=== PATIENT | female | born 2005 | race Caucasian/White ===

== ENCOUNTER 2024-08-09 13:38 | Emergency (ER) | payer BC, SELFPAY ==
[2024-08-09 13:44] VITALS: BP 151/86; PULSE 100; TEMP 37.6; O2SAT 98; BMI 35.2
--- OUTSIDE RECORDS SUMMARY | 2024-08-09 13:53 | XMS_ITS | Encounter Summary ---
Author Organization [facility] tem Address [id number] [address] [place] [address] Care Team Providers Care Cadastral Surveyor Name Role Phone Kelly Montoya DO Primary Care Pro vider Encounter Details Date Type Department Care Team (Late st Contact Info) Description 10/11/2022 Telephone [facility] [address] [facility] [address] [place] [phone] Zelda Ruhsing CNA Social History Tobacco Use Types Packs/Day Years Used Date Smoking Tobacco: Never Smokeless Tobacco: Never Alcohol Use Standard Drinks/Week Comments Never 0 (1 standard drink = 0.6 oz pur e alcohol) AUDIT-C Answer Date Recorded Q1: How often do you have a drink containing alc ohol? Never 09/05/2019 Average Number of Drinks Not on file 020 Frequency of Binge Drinking Not on file 09/2019 PHQ-2 Answer Date Recorded Total Score 2 11/09/2021 Childcare Answer Date Recorded Childcare Unknown 11/07/2018 Employment Answer Date Recorded Employment Unknown 11/07/2018 Purpose - Life Answer Date Recorded Purpose and direction in life Unknown Comments No Sex and Gender Information Value Date Recorded Sex Assigned at Not on file Legal Sex Female 8:10 AM EDT Gender Identity Not on file Sexual Orientation Not on file documented as of this encounter Miscellaneous Notes * Telephone Encounter - Zelda Rushing CNA - 10/11/2022 1:36 PM EDT Patient in recall for office visit with Mariluz Thompson message for patient to call and schedule.Recall letter mailed. documented in this encounter Plan of Treatment Not on file documented as of this encounter Visit Diagnoses Not on filedocumented in this encounter Additional Health Concerns Assessment Noted Time PHQ-9 Depression Total Score: 2 11/10/19 22 8:29 AM EDT A Body Mass Index follow-up plan has been documented for the patient 11/09/2021 9:45 AM EDT documented as of this encounter Care Teams Cadastral Surveyor Relationship Specialty Start Date End Date Kelly Montoya DO [address] [place] [address] PCP - General Pediatrics 04/16/24 documented as of this encounter
--- OUTSIDE RECORDS SUMMARY | 2024-08-09 13:53 | XMS_ITS | Patient Health Record ---
Author Organization Counts Include [facility] vices Address [address] [place], [place] [id number] Care Team Providers Care Ornamental Ironworker Name Role Phone Monica Crocker Unavailable [phone] Kelly Houston Unavailable [phone] Allergies No Known Allergies Reason For Referral Reason Please replace fixed retainers or discuss option of removable retainer Diagnosis 1 Encounter for dental examination and cleaning without abnormal findings (Z01.20) Referral Organization [facility] Referring Provider First Name Kelly Referring Provider Last Name Celso Referring Provider Speciality Dental Gen [facility] Practice Referred Provider [facility] Thong Referred Provider Specialty Orthodontics General Notes Maria Fernanda Briceño 08/29 04:18:44 PM >1st attempt to contact patientEVANGELINA Morin, Michelle 09/22/2023 04:19:39 PM >1st attempt to contact patient, Keyanna HUTCHINSON Michelle 02/27/2024 01:47:19 PM >2nd attempt to contact pt, LVM Referral Priority Routine Medications Medication SIG (Take, Route, Frequency, Duration) Notes Start Date End Date Status Pantoprazole Sodium 40 MG Oral for 30 Days Active DULoxetine HCl 20 MG Oral for 30 Days Active Social History Tobacco Use: Social History Observation Description Date Details (start date - stop date) Never Smoker NA - NA Sex Assigned At : Social History Observation Description Sex Assigned At Female Tobacco Control (Standard) Question Answer Notes Tobacco use: Nonsmoker Additional Findings: Tobacco non-user Current no nsmoker Problems Problem Type SNOMED Code ICD Code Onset Dates Problem Status W/U Status Risk Notes Problem Obese class II (835577396758 105) BMI 39.0-39.9,a dult (Z68.39) Active confirmed Vital Signs Heart Rate 62 /min 09/12/2023 Height-cm 152.4 cm 09/12/2023 Blood pressure diastolic 62 mm Hg 09/12/2023 Weight-kg 90.72 kg 09/12/2023 BMI Percentile 98.14 % 08/29/2023 Height 60 in 09/12/2023 Blood pressure systolic 103 mm Hg 09/12/2023 Weight 200 lbs 09/12/2023 BMI 39.06 kg/m2 09/12/2023 Encounters Encounter Location Date Provider Diagnosis [facility] [address] [place], [place] [id number] 08/29/2023 Kelly Houston BMI 39.0-39.9,adul t Z68.39 ; Dietary counseling Z71.3 ; Exercise counseling Z71.82 ; Encounter for screening for dental disorders Z13.84 ; Encounter for dental examination and cleaning with abnormal findings Z01.21 and Dental caries into dentine K02.62 [facility] [address] [place], [place] [phone] 09/12/2023 Kelly Houston BMI 39.0-39.9,adul t Z68.39 ; Dietary counseling Z71.3 ; Exercise counseling Z71.82 and Dental caries into dentine K02.62 Assessments Encounter Date Diagnosis (ICD Code) Assessment Notes Treatment Notes Treatment Clinical Notes Section Notes 08/29/2023 BMI 39.0-39.9,adult (ICD-10 - Z68.39) 09/12/2023 BMI 39.0-39.9,adult (ICD-10 - Z68.39) 09/12/2023 Dietary counseling (ICD-10 - Z71.3) 08/29/2023 Dietary counseling (ICD-10 - Z71.3) 09/12/2023 Exercise counseling (ICD-10 - Z71.82) 08/29/2023 Exercise counseling (ICD-10 - Z71.82) 08/29/2023 Encounter for screening for dental disorders (ICD-10 - Z13.84) 09/12/2023 Dental caries into dentine (ICD-10 - K02.62) 08/29/2023 Encounter for dental examination and cleaning with abnormal findings (ICD-10 - Z01.21) 08/29/2023 Dental caries into dentine (ICD-10 - K02.62) Plan Of Treatment No Information Insurance Providers Payer Name Payer Address Payer Phone Subscriber Number Group Number Insured Name Patient Relationship to Insured Coverage Start Date Coverage End Date [facility] [address] [place] [phone] [id number] [place] Child - Insured does not have Financial Responsibility (includes legally adopted child) 4 Medical (General) History Medical History History ICD Code acid reflux depression
--- OUTSIDE RECORDS SUMMARY | 2024-08-09 13:53 | XMS_ITS | Clinical Summary ---
Author Organization [employer] tem Address [id number] [address] [place] [address] Care Team Providers Care Buzzle Buffer Name Role Phone Kelly Montoya DO Primary Care Pro vider Allergies No known active allergies Medications pantoprazole (PROTONIX) 40 mg EC tabletIndications: Gastroesophageal reflux disease, unspecified whether esophagitis present TAKE 1 TABLET EVERY MORNING BEFORE BREAKFAST 90 tablet 3 4 Active ondansetron ODT (ZOFRAN ODT) 4 mg disintegrating tabletIndications: Gastroparesis Dissolve 1 tablet (4 mg total) on tongue every 8 (eight) hours as needed for nausea or vomiting. 30 tablet 1 4 Active DULoxetine (CYMBALTA) 20 mg capsuleIndications :Major depressive disorder, recurrent, mild TAKE 2 CAPSULES (40 MG TOTAL) BY MOUTH IN THE MORNING. ICD 10 IS F33.0. 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 Undiagnosed cardiac murmurs 2003 Encounters Date Type Department Care Team Description 05/24/2024 [facility] [address] [facility] [address] [place] [address] Kelly Bowen DO 05/22/2024 1:30 PM EDT - 05/22/2024 11:59 PM EDT Hospital Encounter [facility] [address] [place] [address] Gastroparesis; Other fatigue; Screening examination for STI; Exposure to hepatitis C Discharge Disposition: Home 05/22/2024 Travel from Last 3 Months Immunizations Immunization Administration Dates Next Due DTaP 10/11/2008, 5,03/03/2004,2003,2003 H1N1 Nasal 12/31/2008 Hep A, 2 Dose 07/16/2006,12/11/2005 Hepatitis B 08/17/2004, 4,2003,2003 HiB 08/17/2004, 5,2003,2003 IPV 10/11/2008, 5,2003,2003 Influenza, Im Trivalent Preservative 02/28/2012 Influenza, Unspecified 01/12/2013,2010,01/26/2010,2009,02/05/2009,02/11/2007,01/30/2005,0 05/07/2004,03/03/2004 MMR 10/11/2008,08/17/2004 Meningococcal B, Omv 10/03/2019,09/05/2019 Meningococcal Conjugate 09/05/2019 Meningococcal MCV4P 01/31/2015 Pneumococcal Conjugate 12/11/2004,2004,2003,2003 Tdap 01/31/2015 Varicella 03/21/2009,12/11/2004 Family History Medical History Relation Name Comments ADD / ADHD Brother Autism Brother No Known Problems Father No Known Problems Mother No Known Problems Sister Anesthesia problems Neg Hx Relation Name Status Comments Brother Alive Father Alive Mother Alive Sister Alive Social History Tobacco Use Types Packs/Day Years Used Date Smoking Tobacco: Never Smokeless Tobacco: Never Tobacco Cessation:Counseling Given: Not Answered Alcohol Use Standard Drinks/Week Comments Never 0 (1 standard drink = 0.6 oz pur e alcohol) AUDIT-C Answer Date Recorded Q1: How often do you have a drink containing alc ohol? Never 09/05/2019 Average Number of Drinks Not on file 020 Frequency of Binge Drinking Not on file 09/2019 PHQ-2 Answer Date Recorded Total Score 8 06/24/2023 Childcare Answer Date Recorded Childcare Unknown 11/07/2018 Employment Answer Date Recorded Employment Unknown 11/07/2018 Hunger Screening Answer Date Recorded Within the past 12 months we worried whether our food would run out before we got money to buy more. Never True 12/27/2023 Within the past 12 months th e food we bought just didn't last and we didn't have money to get more. Never True 12/27/2023 Purpose - Life Answer Date Recorded Purpose and direction in life Unknown Comments No Sex and Gender Information Value Date Recorded Sex Assigned at Not on file Legal Sex Female 8:10 AM EDT Gender Identity Not on file Sexual Orientation Not on file Last Filed Vital Signs Vital Sign Reading Time Taken Comments Blood Pressure 110/68 04/16/2024 11:31 AM EST Pulse 63 04/16/2024 11:31 AM EST Temperature 36.7 C (98.1 F) 04/16/2024 11:31 AM EST Respiratory Rate 18 04/16/2024 11:31 AM EST Oxygen Saturation 98% 04/16/2024 11:31 AM EST Inhaled Oxygen Concentration - - Weight 80.4 kg (177 lb 4 oz) 04/16/2024 11:31 AM EST Height 152.4 cm (5') 12/27/2023 12:20 PM EDT Body Mass Index 34.62 12/27/2023 12:20 PM EDT Plan of Treatment Health Maintenance Due Date Last Done Comments Adult BMI Follow Up Plan 08/06/2021 Depression Screening 06/23/2024 06/24/2023 Pap Smear 08/06/2024 Influenza Vaccine 10/29/2024 01/12/2013, , 02/01/2011, Additional history exists DTaP,Tdap and Td Vaccines (7 - Td or Tdap) 01/31/2025 01/31/2015, 10/11/2008, 12/11/2004, Additional history exists Adult BMI Screening 04/16/2025 04/16/2024 Tobacco Screening 05/24/2025 05/24/2024 Medical Devices Not on file Procedures Procedure Name Priority Date/Time Associated Diagnosis Comments CHLAMYDIA/GONORRHOEAE BY PCR, URINE Routine 05/22/2024 1:31 PM EDT Screening examination for STI HEPATITIS C(HCV) ANTIBODY W/REFLEX TO PCR Routine 05/22/2024 1:30 PM EDT Exposure to hepatitis C Screening examination for STI SYPHILIS TOTAL(UNKNOWN SYPHILIS STATUS) Routine 05/22/2024 1:30 PM EDT Screening examination for STI HIV 1&2 AB/AG SCREEN (P24 AG) Routine 05/22/2024 1:30 PM EDT Screening examination for STI CBC WITH AUTO DIFFERENTIAL Routine 05/22/2024 1:30 PM EDT Screening examination for STI FERRITIN Routine 05/22/2024 1:30 PM EDT Gastroparesis Other fatigue IRON AND TIBC Routine 05/22/2024 1:30 PM EDT Gastroparesis Other fatigue FOLATE Routine 05/22/2024 1:30 PM EDT Gastroparesis Other fatigue VITAMIN B12 Routine 05/22/2024 1:30 PM EDT Gastroparesis Other fatigue from Last 3 Months Results * Chlamydia/Gonorrhoeae by PCR, Urine (05/22/2024 1:31 PM EDT) Chlamydia by PCR, Urine Negative Negative^N egative 05/23/2024 12:09 PM EDT [facility] Comment: Chlamydia trachomatis not detected by nucleic acid amplification. This does not exclude the possibility of infection because results are dependent on adequate specimen collection. Gonorrhoeae by PCR, Urine Negative Negative^N egative 05/23/2024 12:09 PM EDT [facility] Comment: Neisseria gonorrhoeae not detected by nucleic acid amplification. This does not exclude the possibility of infection because results are dependent on adequate specimen collection. Urine Urine / Unknown 05/22/2024 1 :31 PM EDT 05/22/2024 1:32 PM EDT us Kelly Montoya DO MICROBIOLOGY - GE NERAL ORDERABLES Final Result [facility] [address] [place] [address], [address] [place] [address] * HIV 1&2 AB/AG Screen (P24 AG) (05/22/2024 1:30 PM EDT) Pathologist [facility] HIV 1&2 AB/AG Non-React t[place] Non-React t[place]^Non-R eactive 05/22/2024 9:18 PM EDT [facility] Comment: NEW TEST METHOD NOTE This information has been disclosed to you from confidential records protected from disclosure by state law. You shall make no further disclosure of this information without the specific, written and informed release of the individual to whom it pertains, or as otherwise permitted by state law. A general authorization for the release of medical or other information is not sufficient for the purpose of the release of HIV test results or diagnoses. Serum / Unknown 05/22/2024 1 :30 PM EDT 05/22/2024 1:31 PM EDT us Kelly Montoya DO LAB BLOOD ORDERAB LES Final Result [facility] [address] [place] [address], [address] [place] [address] * Syphilis Total(Unknown Syphilis Status) (05/22/2024 1:30 PM EDT) Syphilis Total <0.2 0.0 - 0.8 AI 05/22/2024 10:52 PM EDT [facility] Comment: NON REACTIVE No serologic evidence of infection to Treponema pallidum (syphilis). Repeat testing may be considered in patients with suspected acute or primary syphilis in 2 to 4 weeks. Serum / Unknown 05/22/2024 1 :30 PM EDT 05/22/2024 1:31 PM EDT us Kelly Montoya DO LAB BLOOD ORDERAB LES Final Result [facility] [address] [facility], [address] [place] [address] * CBC auto differential (05/22/2024 1:30 PM EDT) White Blood Cells 5.1 4.0 - 11.0 X10E9/L 05/22/2024 6:10 PM EDT [facility] RBC count 4.92 3.80 - 5.20 X10E12/L 05/22/2024 6:10 PM EDT [facility] Hemoglobin 13.8 11.7 - 15.5 g/dL 05/22/2024 6:10 PM EDT [facility] Hematocrit 41.3 35 - 47 % 05/22/2024 6:10 PM EDT [facility] MCV 84 80 - 100 fL 05/22/2024 6:10 PM EDT [facility] MCH 28.0 27 - 34 pg 05/22/2024 6:10 PM EDT [facility] MCHC 33.3 32 - 36 g/dL 05/22/2024 6:10 PM EDT [facility] RDW 14.0 11.5 - 15.0 % 05/22/2024 6:10 PM EDT [facility] Platelets 264 150 - 450 X10E9/L 05/22/2024 6:10 PM EDT [facility] MPV 8.6 7 - 12 fL 05/22/2024 6:10 PM EDT [facility] % neutrophils 56.1 % 05/22/2024 6:10 PM EDT [facility] % lymphocytes 35.3 % 05/22/2024 6:10 PM EDT [facility] % monocytes 7.5 % 05/22/2024 6:10 PM EDT [facility] % eosinophils 0.5 % 05/22/2024 6:10 PM EDT [facility] % Basophils 0.6 % 05/22/2024 6:10 PM EDT [facility] Neutrophils Absolute (A) 2.9 1.5 - 6.6 X10E9/L 05/22/2024 6:10 PM EDT [facility] Lymphocytes Absolute 1.8 1.0 - 3.5 X10E9/L 05/22/2024 6:10 PM EDT [facility] Monocytes Absolute 0.4 0 - 0.9 X10E9/L 05/22/2024 6:10 PM EDT [facility] Eosinophils Absolute 0.0 0.0 - 0.4 X10E9/L 05/22/2024 6:10 PM EDT [facility] Basophils Absolute 0.0 0.0 - 0.2 X10E9/L 05/22/2024 6:10 PM EDT [facility] Blood / Unknown 05/22/2024 1 :30 PM EDT 05/22/2024 1:31 PM EDT us Kelly Montoya DO LAB BLOOD ORDERAB LES Final Result [facility] [address] [facility] [facility] [place] [address] * Hepatitis C(HCV) Ab w/ Reflex to PCR (05/22/2024 1:30 PM EDT) Anti HCV w/ PCR reflex Non-Reacti ve Non-Reacti ve^Non-[place] ctive 05/22/2024 9:28 PM EDT [facility] Comment: NEW TEST METHOD NOTE If recent infection suspected, recommend repeat testing (>2 months). Hreddp-vi-najezl ratio is <1.00. Serum / Unknown 05/22/2024 1 :30 PM EDT 05/22/2024 1:31 PM EDT us Kelly C LocateBaltimoredBlueLithiumki-Morrow DO LAB BLOOD ORDERAB LES Final Result Performing Organization Address [facility] Co de Phone Number [facility] [address] [place] [address], [address] [address] * (ABNORMAL) Iron and TIBC (05/22/2024 1:30 PM EDT) Iron 161 50 - 170 ug/dL 05/22/2024 6:14 PM EDT [facility] Tibc-calc only do not order 427(H) 250 - 425 ug/dL 05/22/2024 6:14 PM EDT [facility] Iron Saturation 38 15 - 50 % SATURATION 05/22/2024 6:14 PM EDT [facility] PLASMA 05/22/2024 1:30 PM EDT 05/22/2024 1:31 PM EDT us Kelly C MyMusic DO LAB BLOOD ORDERAB LES Final Result Performing Organization Address [facility] Co de Phone Number [address], [address] [address] * Folate (05/22/2024 1:30 PM EDT) Folate 9.3 >5.8 ng/mL 05/22/2024 6:30 PM EDT [facility] Comment:NEW REFERENCE RANGE PLASMA 05/22/2024 1:30 PM EDT 05/22/2024 1:31 PM EDT us Kelly C LocateBaltimoredBlueLithiumki-Morrow DO LAB BLOOD ORDERAB LES Final Result [facility] [address] [facility], [address] [place] [address] * (ABNORMAL) Ferritin (05/22/2024 1:30 PM EDT) Ferritin 10(L) 11 - 307 ng/mL 05/22/2024 6:27 PM EDT [facility] PLASMA 05/22/2024 1:30 PM EDT 05/22/2024 1:31 PM EDT us Kelly C Chudzinski-Morrow DO LAB BLOOD ORDERAB LES Final Result [facility] [address] [facility] [address] [place] [address] * Vitamin B12 (05/22/2024 1:30 PM EDT) Vitamin B-12 294 180 - 914 pg/mL 05/22/2024 6:31 PM EDT [facility] Serum / Unknown 05/22/2024 1 :30 PM EDT 05/22/2024 1:31 PM EDT us Kelly C Chudzinski-Morrow DO LAB BLOOD ORDERAB LES Final Result Performing Organization Address City/[facility]/ZIP Co de Phone Number [facility] [address] [facility] [address] [place] [address] from Last 3 Months Insurance [facility] Care Teams Buzzle Buffer Relationship Specialty Start Date End Date Kelly Montoya DO [address] [phone] PCP - General Pediatrics 04/16/24
--- OUTSIDE RECORDS SUMMARY | 2024-08-09 13:53 | XMS_ITS | Encounter Summary ---
Author Organization [facility] Address [id number] [address] [place] [address] Care Team Providers Care Director Of Distribution Name Role Phone Kelly Montoya DO Primary Care Pro vider Encounter Details Date Type Department Care Team (Late st Contact Info) Description 05/24/2024 Telephone [facility] [address] [phone] Kelly Montoya DO [address] [phone] Social History Tobacco Use Types Packs/Day Years [...] encounter Miscellaneous Notes * Telephone Encounter - Kelly Montoya DO - 05/24/2024 5:10 PM EDT Please update patient that her labs were overall reassuring. CBC normal. Ferritin is stably low, however, iron, folate and vitamin B12 all look good. HIV, syphilis, hep C all nonreactive. Screening for gonorrhea and chlamydia negative. * Telephone Encounter - MELI Cross - 05/24/2024 5:10 PM EDT LMOM with detailed message.MELI Cross documented in this encounter Plan of Treatment Not on file documented as of this encounter Visit Diagnoses Not on filedocumented in this encounter Additional Health Concerns Assessment Noted Time PHQ-9 Depression Total Score: 8 06/24/19 24 9:47 AM EDT A Body Mass Index follow-up plan has been documented for the patient 11/09/2021 9:45 AM EDT documented as of this encounter Care Teams Director Of Distribution Relationship Specialty Start Date End Date Kelly Montoya DO [address] [place] [address] PCP - General Pediatrics 04/16/24 documented as of this encounter
--- OUTSIDE RECORDS SUMMARY | 2024-08-09 13:53 | XMS_ITS | Encounter Summary ---
Author Organization [employer] [facility] tem Address [id number] [address] [place] [address] Care Team Providers Care Open Hearth Worker Name Role Phone Kelly Montoya DO Primary Care Pro vider Encounter Details Date Type Department Care Team (Late st Contact Info) Description 12/14/2023 Telephone [facility] [address] [phone] Josiah Palm Social History Tobacco Use Types Packs/Day Years [...] got money to buy more. Never True 09/27/2023 Within the past 12 months th e food we bought just didn't last and we didn't have money to get more. Never True 09/27/2023 Purpose - Life Answer Date Recorded Purpose and direction in life Unknown Comments No Sex and Gender Information Value Date Recorded Sex Assigned at Not on file Legal Sex Female 8:10 AM EDT Gender Identity Not on file Sexual Orientation Not on file documented as of this encounter Miscellaneous Notes * Telephone Encounter - Josiah Palm - 12/14/2023 9:29 AM EDT Armando from [facility] said that imaging told her that they need a new order for NM gastric emptying, instead of liquid, they need it to say solid. I have the order pending. Patient is scheduled 12/18 for the test. * Telephone Encounter - Kelly Montoya DO - 12/14/2023 9:29 AM EDT Unfortunately, I can not sign off on the order due to it requesting the Record Decision Support Information within the order protocol and this cannot be bypassed. Please reach out to patient to letthem know that this request will need to be completed by her GI at the [facility] in order to be scheduled. Please contact their office to request the order and provide instructions of where they can fax itto an order for it to be completed/scheduled. * Telephone Encounter - Maru Landry CMA - 12/14/2023 9:29 AM EDT Called and spoke to mother. She will call and get the testing ordered by [facility] and have them fax to [facility]. documented in this encounter Plan of Treatment Not on file documented as of this encounter Visit Diagnoses Diagnosis Gastroparesis- Primary documented in this encounter Additional Health Concerns Assessment Noted Time PHQ-9 Depression Total Score: 8 06/23/ 24 9:47 AM EDT A Body Mass Index follow-up plan has been documented for the patient 11/09/2021 9:45 AM EDT documented as of this encounter Care Teams Open Hearth Worker Relationship Specialty Start Date End Date Kelly Montoya DO [address] [place] [address] PCP - General Pediatrics 04/16/24 documented as of this encounter
--- OUTSIDE RECORDS SUMMARY | 2024-08-09 13:53 | XMS_ITS | Encounter Summary ---
Author Organization [employer] Sys tem Address [facility] [id number] [address] [place] [address] Care Team Providers Care Pension Manager Name Role Phone Kelly Montoya DO Primary Care Pro vider Reason for Visit * Reason Comments Med Refill Encounter Details Date Type Department Care Team (Late st Contact Info) Description 06/16/2022 Refill [facility] [address] [place] [address] Kelly Montoya DO [address] [place] [address] Gastroesophageal reflux disease, unspecified whether esophagitis present Social History Tobacco Use Types Packs/Day Years [...] on file documented as of this encounter Plan of Treatment Not on file documented as of this encounter Visit Diagnoses Diagnosis Gastroesophageal reflux disease, unspecified whether esophagitis present documented in this encounter Additional Health Concerns Assessment Noted Time PHQ-9 Depression Total Score: 2 11/10/19 8:29 AM EDT A Body Mass Index follow-up plan has been documented for the patient 11/09/2021 9:45 AM EDT documented as of this encounter Care Teams Pension Manager Relationship Specialty Start Date End Date Kelly Montoya DO [address] [place] [address] PCP - General Pediatrics 04/16/24 documented as of this encounter
--- OUTSIDE RECORDS SUMMARY | 2024-08-09 13:53 | XMS_ITS | Encounter Summary ---
Author Organization [facility] Sys tem Address [facility] [place]-[id number] [address] [place] [address] Care Team Providers Care Adhesive Bonding Machine Operator Name Role Phone Kelly Montoya DO Primary Care Pro vider Encounter Details Date Type Department Care Team (Late st Contact Info) Description 10/11/2022 Orders Only [facility] [address] [place] [address] Mariluz Chapin, ARTIST CONSULTANT-[facility] [address] [facility] [address] [place] [address] Altered bowel habits Social History Tobacco Use Types Packs/Day Years [...] as of this encounter Visit Diagnoses Diagnosis Altered bowel habits documented in this encounter Additional Health Concerns Assessment Noted Time PHQ-9 Depression Total Score: 2 11/10/19 22 8:29 AM EDT A Body Mass Index follow-up plan has been documented for the patient 11/09/2021 9:45 AM EDT documented as of this encounter Care Teams Adhesive Bonding Machine Operator Relationship Specialty Start Date End Date Kelly Montoya DO [address] [place] [address] PCP - General Pediatrics 04/16/24 documented as of this encounter
--- OUTSIDE RECORDS SUMMARY | 2024-08-09 13:53 | XMS_ITS | Encounter Summary ---
Author Organization [employer] Sys tem Address [facility] [place][id number] [address] [place] [address] Care Team Providers Care Wash Tub Machine Operator Name Role Phone Kelly Montoya DO Primary Care Pro vider Encounter Details Date Type Department Care Team (Late st Contact Info) Description 08/11/2022 [facility] [address] [facility] [address] [place] [phone] Nikole Gray CMA Social History Tobacco Use Types Packs/Day Years [...] encounter Miscellaneous Notes * Telephone Encounter - Nikole Gray CMA - 08/11/2022 9:20 AM EDT Spoke to patient mother. She states they already see an Endo Physician. documented in this encounter Plan of Treatment Not on file documented as of this encounter Visit Diagnoses Not on filedocumented in this encounter Additional Health Concerns Assessment Noted Time PHQ-9 Depression Total Score: 2 11/10/19 22 8:29 AM EDT A Body Mass Index follow-up plan has been documented for the patient 11/09/2021 9:45 AM EDT documented as of this encounter Care Teams Wash Tub Machine Operator Relationship Specialty Start Date End Date Kelly Montoya DO [address] [place] [address] PCP - General Pediatrics 04/16/24 documented as of this encounter
--- OUTSIDE RECORDS SUMMARY | 2024-08-09 13:53 | XMS_ITS | Encounter Summary ---
Author Organization [facility] [employer] [facility] Address [facility] [place][id number] [address] [place] [address] Care Team Providers Care Restaurant Kitchen And Service Manager Name Role Phone Kelly Montoya DO Primary Care Pro vider Reason for Visit * Reason Comments Med Refill Encounter Details Date Type Department Care Team (Late st Contact Info) Description 06/08/2022 Refill [facility] [address] [place] [address] Kelly Montoya DO [address] [place] [address] Mild episode of recurrent major depressive disorder ([facility]) Social History Tobacco Use Types Packs/Day Years [...] as of this encounter Visit Diagnoses Diagnosis Mild episode of recurrent major depressive disorder documented in this encounter Additional Health Concerns Assessment Noted Time PHQ-9 Depression Total Score: 2 11/10/19 8:29 AM EDT A Body Mass Index follow-up plan has been documented for the patient 11/09/2021 9:45 AM EDT documented as of this encounter Care Teams Restaurant Kitchen And Service Manager Relationship Specialty Start Date End Date Kelly Montoya DO [address] [place] [address] PCP - General Pediatrics 04/16/24 documented as of this encounter
--- OUTSIDE RECORDS SUMMARY | 2024-08-09 13:53 | XMS_ITS | Encounter Summary ---
Author Organization [facility] Sys tem Address [facility] [id number] [address] [place] [address] Care Team Providers Care Level Vial Curvature Gauger Name Role Phone Kelly Montoya DO Primary Care Pro vider Encounter Details Date Type Department Care Team (Late st Contact Info) Description 06/03/2022 Telephone [facility] [address] [place] [address] [address] [place] [phone] Consultants, [facility] [address] [place] [address], [address] [place] [address] Social History Tobacco Use Types Packs/Day Years [...] encounter Miscellaneous Notes * Telephone Encounter - Nida Mccarty - 06/03/2022 12:07 PM EDT Received a referral Bony Gomez from Dr. Rupali Morrow for chronic right upper quadrant pain. M for patient to call back and schedule pressurised container filler appointment with gastroenterology. documented in this encounter Plan of Treatment Not on file documented as of this encounter Visit Diagnoses Not on filedocumented in this encounter Additional Health Concerns Assessment Noted Time PHQ-9 Depression Total Score: 2 11/10/19 22 8:29 AM EDT A Body Mass Index follow-up plan has been documented for the patient 11/09/2021 9:45 AM EDT documented as of this encounter Care Teams Level Vial Curvature Gauger Relationship Specialty Start Date End Date Kelly Montoya DO [address] [place] [address] PCP - General Pediatrics 04/16/24 documented as of this encounter
--- OUTSIDE RECORDS SUMMARY | 2024-08-09 13:53 | XMS_ITS | Encounter Summary ---
Author Organization [facility] Address [address] [place] [address] Care Team Providers Care Sales Counselor Name Role Phone Bobo Coelho Primary Care Provider [phone] Pcp, No MANAGER SUPPLY CHAIN PLANNING Primary Care Provider Unavailabl e Source Comments In the event this information is protected by the Federal Confidentiality of Alcohol and Drug AbusePatient Records regulations: The Federal rules restrict any use of the information to criminally investigate or prosecute any alcohol or drug abuse patient.[facility] Encounter Details Date Type Department Care Team (Latest Contact Info) Description 06/21/2004 Prob Sum Review Provider, Cc Social History Tobacco Use Types Packs/Day Years Used Date Smoking Tobacco: Never Assessed Comments Unknown Sex and Gender Information Value Date Recorded Sex Assigned at Not on file Legal Sex Female 10:03 AM EST Gender Identity Not on file Sexual Orientation Not on file documented as of this encounter Plan of Treatment Not on file documented as of this encounter Visit Diagnoses Not on filedocumented in this encounter Care Teams Sales Counselor Relationship Specialty Start Date End Date Bobo Coelho [address] [place] [address] PCP - General 03/23/04 09/11/21 Pcp, No, INDU PCP - General 09/12/21 03/30/22 documented as of this encounter
--- OUTSIDE RECORDS SUMMARY | 2024-08-09 13:53 | XMS_ITS | Encounter Summary ---
Author Organization [facility] Address [facility] [place]-[id number] [address] [place] [address] Care Team Providers Care Make Ready Worker Name Role Phone Kelly Montoya DO Primary Care Pro vider Reason for Visit * Reason Onset Date Comments Med Refill 11/02/2023 Encounter Details Date Type Department Care Team (Late st Contact Info) Description 11/02/2023 Refill [facility] [address] [facility] [address] [place] [address] Mariluz Chapin, [facility] [address] [facility] [address] [place] [id number] Social History Tobacco Use Types Packs/Day Years [...] encounter Miscellaneous Notes * Telephone Encounter - Rochelle Johnson CMA - 11/02/2023 9:42 AM EDT Pt last saw you 12/16/22 * Telephone Encounter - CLAIRE Lrason - 11/02/2023 9:42 AM EDT Patient overdue for follow up appointment with Dr. Cheek as recommended following last OV in 11/2022. * Telephone Encounter - Rochelle Johnson CMA - 11/02/2023 9:42 AM EDT My chart message sent to pt documented in this encounter Plan of Treatment Not on file documented as of this encounter Visit Diagnoses Not on filedocumented in this encounter Additional Health Concerns Assessment Noted Time PHQ-9 Depression Total Score: 8 06/24/19 24 9:47 AM EDT A Body Mass Index follow-up plan has been documented for the patient 11/09/2021 9:45 AM EDT documented as of this encounter Care Teams Make Ready Worker Relationship Specialty Start Date End Date Kelly Montoya DO [address] [place] [phone] PCP - General Pediatrics 04/16/24 documented as of this encounter
--- OUTSIDE RECORDS SUMMARY | 2024-08-09 13:53 | XMS_ITS | Encounter Summary ---
Author Organization [employer] [facility] Address [facility]-[id number] [address] [place] [address] Care Team Providers Care Window Glass Cutter Off Name Role Phone Kelly Montoya DO Primary Care Pro vider Reason for Visit * Reason Onset Date Comments Med Refill 07/15/2022 Encounter Details Date Type Department Care Team (Late st Contact Info) Description 07/15/2022 Refill [facility] [address] [place] [phone] Vale Michel, GUNNER Mild episode of recurrent major depressive disorder ([facility]) Social History Tobacco Use Types Packs/Day Years [...] encounter Miscellaneous Notes * Telephone Encounter - Vale Michel RN - 07/15/2022 4:30 PM EDT appt is scheduled for August 02 at 11 AM Please amend script for 30 day dose documented in this encounter Plan of Treatment [...] documented as of this encounter Care Teams Window Glass Cutter Off Relationship Specialty Start Date End Date Kelly Montoya DO [address] [place] [address] PCP - General Pediatrics 04/16/24 documented as of this encounter
--- OUTSIDE RECORDS SUMMARY | 2024-08-09 13:53 | XMS_ITS | Encounter Summary ---
Author Organization [facility] Address [facility] [place][id number] [address] [place] [address] Care Team Providers Care Cds Sales Advisor Name Role Phone Kelly Montoya DO Primary Care Pro vider Reason for Visit * Reason Comments Med Refill Encounter Details Date Type Department Care Team (Late st Contact Info) Description 02/03/2023 Refill [facility] [address] [place] [address] Kelly Montoya DO [address] [place] [address] Gastroesophageal reflux disease, unspecified whether [...] got money to buy more. Never True 12/16/2022 Within the past 12 months th e food we bought just didn't last and we didn't have money to get more. Never True 12/16/2022 Purpose - Life Answer Date Recorded Purpose [...] documented as of this encounter Care Teams Cds Sales Advisor Relationship Specialty Start Date End Date Kelly Montoya DO [address] [place] [address] PCP - General Pediatrics 04/16/24 documented as of this encounter
--- OUTSIDE RECORDS SUMMARY | 2024-08-09 13:53 | XMS_ITS | Clinical Summary ---
Author Organization [facility] Address [address] [place] [address] Care Team Providers Care Custom Frame Assembler Name Role Phone Unavailable Primary Care Provider Unavailabl e Allergies No known active allergies Medications multivitamin tablet Take 1 tablet by mouth once daily. Active Ibuprofen (MOTRIN) 100 mg tablet Take 200 mg by mouth every 6 hours as needed. Active DULoxetine (CYMBALTA) 20 mg capsule TAKE 2 CAPSULES (40 MG TOTAL) BY MOUTH IN THE MORNING. ICD 10 IS F33.0. 4 Active ondansetron orally disintegrating (ZOFRAN ODT) 4 mg disintegrating tablet Take 4 mg by mouth three times a day as needed. [address] (PROTONIX) 40 mg tablet Take 40 mg by mouth. 4 Active Erythromycin 250 mg cpDRIndications:Gas troparesis Take 1 capsule by mouth before meals and at bedtime. Take for 3 weeks then stop for a week then restart the cycle 120 capsule 5 4 Active meclizine (ANTIVERT) 25 mg tabIndications:Naus ea Take 1 tablet by mouth three times a day as needed. 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 Undiagnosed cardiac murmurs 2003 Immunizations Immunization Administration Dates Next Due hepatitis B (HepB) vaccine, 3-dose series, age 0 yr - 19 yr (ENGERIX B-PEDS, RECOMBIVAX HB-PEDS) 2003 Social History Tobacco Use Types Packs/Day Years Used Date Smoking Tobacco: Passive Smo ke Exposure - Never Smoker Alcohol Use Standard Drinks/Week Comments No 0 (1 standard drink = 0.6 oz pur e alcohol) Area Deprivation Index Answer Date Harry rded National Score (1-100), lower number is lower ri sk 60 06/21/2023 State Score (1-10), lower number is lower risk 4 06/21/2023 Data from: https://www.neighborhoodatlas.medicine.[facility]/. Last address used for calculation [address] 06/21/2023 Comments No Sex and Gender Information Value Date Recorded Sex Assigned at Not on file Legal Sex Female 10:03 AM EST Gender Identity Not on file Sexual Orientation Not on file Last Filed Vital Signs Vital Sign Reading Time Taken Comments Blood Pressure 138/76 06/21/2023 1:33 PM EDT Pulse 70 06/21/2023 1:33 PM EDT Temperature 36.7 C (98.1 F) 11/03/2014 7:58 PM EDT Respiratory Rate 22 11/03/2014 7:58 PM EDT Oxygen Saturation 98% 11/03/2014 7:58 PM EDT Inhaled Oxygen Concentration - - Weight 93.9 kg (207 lb 0.2 oz) 06/21/2023 1:33 P M EDT Height 152.4 cm (5') 06/21/2023 1:33 PM EDT Body Mass Index 40.43 06/21/2023 1:33 PM EDT Plan of Treatment Health Maintenance Due Date Last Done Comments Peds To Adult Transition Ini tial Discussion 2015 Peds To Adult Transition Orly ual Assessment 08/06/2017 HPV Vaccine (1 - 3-dose series) 08/06/2018 Anxiety Screening 08/06/2021 Chlamydia Screening (18-24) 08/06/2021 Depression Screening 08/06/2021 GC (Gonorrhea) Screening (18-24) 08/06/2021 HIV Screening 08/06/2021 Hepatitis C Screening 08/06/2021 Covid-19 Vaccine (2023-2 5 season) 2023 Cervical Cancer Screening 08/06/2024 Influenza Vaccine (Season Ended) 2024 01/12/2013, 02/28/2012, 02/01/2011, Additional history exists DTaP,Tdap,Td Vaccine (7 - Td or Tdap) 01/31/2025 01/31/2015, 10/11/2008, 12/11/2004, Additional history exists Hepatitis B Vaccine Completed 08/17/2004, 2003, 2003, Additional history exists Meningococcal B Vaccine Completed 10/03/2019, 09/04 Insurance BLUE CARD PPO OOS BLUE CARD PPO OOS
--- OUTSIDE RECORDS SUMMARY | 2024-08-09 13:53 | XMS_ITS | Encounter Summary ---
Author Organization [facility] Sys [facility] Address [facility] [id number] [address] [place] [address] Care Team Providers Care Rail Filler Name Role Phone Kelly Montoya DO Primary Care Pro vider Encounter Details Date Type Department Care Team (Late st Contact Info) Description 06/25/2023 Telephone [facility] [address] [place] [phone] Kelly Montoya DO [address] [phone] Social History Tobacco Use Types Packs/Day Years [...] got money to buy more. Never True 06/24/2023 Within the past 12 months th e food we bought just didn't last and we didn't have money to get more. Never True 06/24/2023 Purpose - Life Answer Date Recorded Purpose and direction in life Unknown Comments No Sex and Gender Information Value Date Recorded Sex Assigned at Not on file Legal Sex Female 8:10 AM EDT Gender Identity Not on file Sexual Orientation Not on file documented as of this encounter Miscellaneous Notes * Telephone Encounter - Kelly Montoya DO - 06/25/2023 8:58 AM EDT Patient's labs demonstrate iron and folate deficiency. I recommend starting a daily MVI and iron supplement. Repeat iron levels in 3 months. * Telephone Encounter - MELI Cross - 06/25/2023 8:58 AM EDT Patient informed and will start RX's then repeat labs in 3 months.MELI Cross documented in this encounter Plan of Treatment Not on file documented as of this encounter Visit Diagnoses Diagnosis Iron deficiency- Primary Disorders of iron metabolism documented in this encounter Additional Health Concerns Assessment Noted Time PHQ-9 Depression Total Score: 8 06/24/19 24 9:47 AM EDT A Body Mass Index follow-up plan has been documented for the patient 11/09/2021 9:45 AM EDT documented as of this encounter Care Teams Rail Filler Relationship Specialty Start Date End Date Kelly Montoya DO [address] [place] [address] PCP - General Pediatrics 04/16/24 documented as of this encounter
--- OUTSIDE RECORDS SUMMARY | 2024-08-09 13:53 | XMS_ITS | Encounter Summary ---
Author Organization [facility] [employer] [facility] [employer] Address [facility] [place]-[id number] [address] [place] [address] Care Team Providers Care Head Tennis Professional Name Role Phone Kelly Montoya DO Primary Care Pro vider Reason for Visit * Reason Comments Med Refill Encounter Details Date Type Department Care Team (Late st Contact Info) Description 12/27/2020 Refill [facility] [address] [place] [address] Kelly Montoya DO [address] [place] [address] Mild episode of recurrent major depressive disorder ([facility]) Social History Tobacco Use Types Packs/Day Years [...] 09/2019 PHQ-2 Answer Date Recorded Total Score 7 12/18/2020 Childcare Answer Date Recorded Childcare Unknown 11/07/2018 Employment Answer Date Recorded Employment Unknown 11/07/2018 Purpose - Life Answer Date Recorded Purpose and direction in life Unknown Comments No Sex and Gender Information Value Date Recorded Sex Assigned at Not on file Legal Sex Female 8:10 AM EDT Gender Identity Not on file Sexual Orientation Not on file COVID-19 Exposure Response Date Recorded In the last month, have you been in contact with someone who was confirmed or suspected to have Coronavirus / COVID-19? No / Unsure 12/30/2020 1:48 PM EDT documented as of this encounter Plan of Treatment Not on file documented as of this encounter Visit Diagnoses Diagnosis Mild episode of recurrent major depressive disorder documented in this encounter Additional Health Concerns Assessment Noted Time PHQ-9 Depression Total Score: 7 12/19/19 21 3:29 PM EDT A Body Mass Index follow-up plan has been documented for the patient 10/30/2020 7:34 PM EDT documented as of this encounter Care Teams Head Tennis Professional Relationship Specialty Start Date End Date Kelly Montoya DO [address] [place] [address] PCP - General Pediatrics 04/16/24 documented as of this encounter
--- OUTSIDE RECORDS SUMMARY | 2024-08-09 13:54 | XMS_ITS | Encounter Summary ---
Author Organization [facility] [employer] [facility] Address [facility] [place]-[id number] [address] [place] [address] Care Team Providers Care Store Sales Consultant Name Role Phone Kelly Montoya DO Primary Care Pro vider Reason for Visit * Reason Comments Med Refill Encounter Details Date Type Department Care Team (Late st Contact Info) Description 05/25/2021 Refill [facility] [address] [place] [address] Kelly Montoya DO [address] [place] [address] Mild episode of recurrent major depressive disorder ([facility]) Social History Tobacco Use Types [...] Time PHQ-9 Depression Total Score: 7 12/19/19 3:29 PM EDT A Body Mass Index follow-up plan has been documented for the patient 10/30/2020 7:34 PM EDT documented as of this encounter Care Teams Store Sales Consultant Relationship Specialty Start Date End Date Kelly Montoya DO [address] [place] [address] PCP - General Pediatrics 04/16/24 documented as of this encounter
--- OUTSIDE RECORDS SUMMARY | 2024-08-09 13:54 | XMS_ITS | Encounter Summary ---
Author Organization [employer] [employer] [facility] [employer] Address [facility] [place][id number] [address] [place] [address] Care Team Providers Care Small Boat Engineer Name Role Phone Kelly Montoya DO Primary Care Pro vider Reason for Visit * Reason Comments Med Refill Encounter Details Date Type Department Care Team (Late st Contact Info) Description 02/26/2021 Refill [facility] [address] [place] [address] Kelly Montoya DO [address] [place] [address] Mild episode of recurrent major depressive disorder ([facility]) Social History Tobacco Use Types [...] documented as of this encounter Care Teams Small Boat Engineer Relationship Specialty Start Date End Date Kelly Montoya DO [address] [place] [address] PCP - General Pediatrics 04/16/24 documented as of this encounter
--- OUTSIDE RECORDS SUMMARY | 2024-08-09 13:54 | XMS_ITS | Encounter Summary ---
Author Organization [facility] [employer] [facility] [employer] Address [facility] [place][id number] [address] [place] [address] Care Team Providers Care Healthcare Recruiter Name Role Phone Kelly Montoya DO Primary Care Pro vider Reason for Visit * Reason Comments Med Refill Encounter Details Date Type Department Care Team (Late st Contact Info) Description 01/16/2021 Refill [facility] [address] [place] [address] Kelly Montoya DO [address] [place] [address] Mild episode of recurrent major depressive disorder ([facility]) Social History Tobacco Use Types [...] have Coronavirus / COVID-19? No / Unsure 01/15/2021 4:41 PM EST documented as of this encounter Plan of [...] documented as of this encounter Care Teams Healthcare Recruiter Relationship Specialty Start Date End Date Kelly Montoya DO [address] [place] [address] PCP - General Pediatrics 04/16/24 documented as of this encounter
--- NOTE | 2024-08-09 14:13 | ED.GENADUL1 ---
HPI HPI - General Adult General Chief complaint: Epistaxis Stated complaint: EPISTAXIS Time Seen by Provider: 08/09/24 13:53 Source: patient Mode of arrival: walk-in History of Present Illness HPI narrative: 19-year-old female presents to the emergency department for nosebleed. She started having bleeding and blood clots coming from the right nostril about 40 minutes ago. She had a sudden onset of a headache at the same time. There is been no trauma. She is being treated for pneumonia and has been on an antibiotic for 4 days. She does not have a history of previous nosebleeds that required medical attention. Related Data Home Medications ?Medication ?Instructions ?Recorded ?Confirmed duloxetine 40 mg capsule,delayed 40 mg PO DAILY 08/09/24 08/09/24 release sprinkle pantoprazole 20 mg tablet,delayed 20 mg PO DAILY 08/09/24 08/09/24 release Allergies Allergy/AdvReac Type Severity Reaction Status Date / Time No Known Drug Allergies Allergy Verified 08/09/24 13:44 Opioid HPI Opioid Management Most Recent Opioid Data: Last Pain Scale 7 Today, 13:44 Review of Systems ROS Narrative A ten point review of systems is negative except as noted above. PFSH PFSH Social History Little interest or pleasure in doing things: not at all Feeling down, depressed, or hopeless: not at all Exam Narrative Exam Narrative: Nurses note and vital signs reviewed and patient is not hypoxic. General: The patient appears well and in no apparent distress. Patient is resting comfortably on cart. Skin: Warm, dry, no pallor noted. There is no rash noted. Head: Normocephalic, atraumatic Eye: Normal conjunctiva, no drainage Ears, Nose, Mouth, and Throat: oral mucosa is moist. Nasal clamp in place. No epistaxis from the left side. She has a clot in the right nostril which I removed and no current active bleeding. Cardiovascular: Regular Rate and Rhythm Respiratory: Patient is in no distress, no accessory muscle use, lungs are clear to auscultation, no wheezing, rales or rhonchi Back: non-tender GI: Soft and nontender Musculoskeletal: The patient has no evidence of calf tenderness, no pitting edema, symmetrical pulses noted bilaterally Neurological: A&O, normal speech Psychiatric: Cooperative Constitutional Vital Signs, click to edit/add: Last Vital Signs Temp 99.6 F 08/09/24 13:44 Pulse 100 H 08/09/24 13:44 Resp 18 08/09/24 13:44 BP 151/86 H 08/09/24 13:44 Pulse Ox 98 08/09/24 13:44 O2 Del Method Room Air 08/09/24 13:44 Course Vital Signs Vital signs: Vital Signs Temperature 99.6 F 08/09/24 13:44 Pulse Rate 100 H 08/09/24 13:44 Respiratory Rate 18 08/09/24 13:44 Blood Pressure 151/86 H 08/09/24 13:44 Pulse Oximetry 98 08/09/24 13:44 Oxygen Delivery Method Room Air 08/09/24 13:44 Temperature 99.6 F 08/09/24 13:44 Pulse Rate 100 H 08/09/24 13:44 Respiratory Rate 18 08/09/24 13:44 Blood Pressure 151/86 H 08/09/24 13:44 Pulse Oximetry 98 08/09/24 13:44 Oxygen Delivery Method Room Air 08/09/24 13:44 Medical Decision Making MDM Narrative Medical decision making narrative: CT brain is negative. Nose has been packed and she will return in 3 days for packing removal. Treatment diagnosis and follow-up were discussed with the patient and her parents. Differential Diagnosis Differential Diagnosis: Anterior epistaxis, posterior epistaxis Imaging Data CT scan - head: Radiologist's impression: No acute intracranial abnormality Discharge Plan Discharge Chief Complaint: Epistaxis Clinical Impression: Epistaxis Patient Disposition: Home, Self-Care Time of Disposition Decision: 15:18 Condition: Good Mode of Transportation: Private Vehicle Prescriptions / Home Meds: No Action duloxetine 40 mg capsule, delayed rel sprinkle 40 mg PO DAILY pantoprazole 20 mg tablet,delayed release (DR/EC) 20 mg PO DAILY Print Language: Persian Instructions: Nosebleed (ED) Additional Instructions: Return to the emergency department on August 12, for packing removal. Referrals: KYLAH ULLOA [Primary Care Provider, Pediatrics] - 1 week Procedures ED Procedure Instructions Procedures Procedures: The patient has had right sided epistaxis. The following procedure was performed by me. 5.5 cm anterior nasal packing was placed and inflated. She tolerated the procedure well and there is no subsequent bleeding.
[2024-08-09] MEDS: ONDANSETRON 4 MG RAPDIS TABLET SL (14:33)
== END 2024-08-09 15:45 | disposition home or self-care (01) ==
PROVIDERS: Emergency Provider Emergency Medicine; PCP Pediatrics
DX: R04.0 Epistaxis (principal)
CPT/HCPCS: 30901; 70450; 99284; Q0162

== ENCOUNTER 2024-08-12 15:15 | Emergency (ER) | payer BC, SELFPAY ==
[2024-08-12 15:18] VITALS: BP 160/95; PULSE 100; TEMP 37; O2SAT 100; BMI 34.2
--- NOTE | 2024-08-12 15:27 | ED.EPISTAXI1 ---
HPI - Epistaxis General Chief Complaint: Epistaxis Stated Complaint: plug from nose removed Time Seen by Provider: 08/12/24 15:19 Source: patient Mode of arrival: walk-in Limitations: no limitations History of Present Illness HPI Narrative: The patient is coming to the ER to have the Rhino Rocket removed after she had an episode of epistaxis almost 3 days ago The Rhino Rocket was placed in our emergency room and the patient had no bleeding since this happened no acute complaint at the moment Related Data Home Medications ?Medication ?Instructions ?Recorded ?Confirmed duloxetine 40 mg capsule,delayed 40 mg PO DAILY 08/09/24 08/09/24 release sprinkle pantoprazole 20 mg tablet,delayed 20 mg PO DAILY 08/09/24 08/09/24 release Allergies Allergy/AdvReac Type Severity Reaction Status Date / Time No Known Drug Allergies Allergy Verified 08/09/24 13:44 Review of Systems ROS Status of ROS 10 or more systems reviewed and unremarkable except as noted in history and below PFSH PFSH Social History Little interest or pleasure in doing things: not at all Feeling down, depressed, or hopeless: not at all Exam Narrative Exam Narrative: Nurses notes and vital signs reviewed and patient is not hypoxic. General: Well-appearing and in no apparent distress. Skin: Warm, dry, no pallor noted. No rash. Head: Normocephalic, atraumatic. Neck: Supple, non-tender. Eye: Pupils are equal, round and EOMI. No scleral icterus. Ears, Nose, Mouth, and Throat: The patient have the Rhino Rocket in the right nostril before removing it there was no bleeding and after removing it there was no active bleeding or blood clot that was observed in the nostril and the patient does not have any posterior pharyngeal bleeding Constitutional Vital Signs, click to edit/add: Last Vital Signs Temp 98.6 F 08/12/24 15:18 Pulse 100 H 08/12/24 15:18 Resp 18 08/12/24 15:18 BP 160/95 H 08/12/24 15:18 Pulse Ox 100 08/12/24 15:18 O2 Del Method Room Air 08/12/24 15:18 Course Vital Signs Vital signs: Vital Signs Temperature 98.6 F 08/12/24 15:18 Pulse Rate 100 H 08/12/24 15:18 Respiratory Rate 18 08/12/24 15:18 Blood Pressure 160/95 H 08/12/24 15:18 Pulse Oximetry 100 08/12/24 15:18 Oxygen Delivery Method Room Air 08/12/24 15:18 Temperature 98.6 F 08/12/24 15:18 Pulse Rate 100 H 08/12/24 15:18 Respiratory Rate 18 08/12/24 15:18 Blood Pressure 160/95 H 08/12/24 15:18 Pulse Oximetry 100 08/12/24 15:18 Oxygen Delivery Method Room Air 08/12/24 15:18 MDM - Epistaxis MDM Narrative Medical decision making narrative: The patient Rhino Rocket was removed smoothly and the patient will be observed for 15 minutes if there is no more bleeding the patient to follow-up with her primary care as outpatient The mother at the bedside instructed as well as the patient that the patient need to make sure that if this is a frequent problem to make sure that primary care is informed The patient is to follow up with primary care physician in next 2-3 days or to return to the emergency department should any of the signs or symptoms worsen or new symptoms develop. The patient agrees with the following Diagnosis and Treatment plan and the patient will be discharged home. Discharge Plan Discharge Chief Complaint: Epistaxis Clinical Impression: Encounter for removal of nasal packing Patient Disposition: Home, Self-Care Time of Disposition Decision: 15:29 Condition: Good Prescriptions / Home Meds: No Action duloxetine 40 mg capsule, delayed rel sprinkle 40 mg PO DAILY pantoprazole 20 mg tablet,delayed release (DR/EC) 20 mg PO DAILY Print Language: Bengali Instructions: Nosebleed (ED) Referrals: KYLAH ULLOA [Primary Care Provider, Pediatrics] - 1 week
== END 2024-08-12 15:46 | disposition home or self-care (01) ==
PROVIDERS: Emergency Provider Emergency Medicine; PCP Pediatrics
DX: Z48.00 Encounter for change or removal of nonsurgical wound dressing (principal)
CPT/HCPCS: 99281